=== PATIENT | female | born 1970 | race Two or more races ===

== ENCOUNTER → 2016-08-08 | Outpatient (CLI) | payer OTHER ==
[~2016-08-08] MED LIST: MELO-273 PO
[2016-08-11 13:59] LABS: H. PYLORI ANTIBODY IGM <9.0 units (0.0-8.9)
== END | disposition home or self-care (01) ==
LOC: LABPV 09:37
PROVIDERS: ATTEND Family Medicine
DX: A04.8 Other specified bacterial intestinal infections (principal)
CPT/HCPCS: 86677

== ENCOUNTER → 2016-11-25 | Outpatient (CLI) | payer OTHER | END | disposition home or self-care (01) | LOC: RADPV 12:00 | PROVIDERS: ATTEND Family Medicine | DX: G89.29 Other chronic pain (principal); M25.562 Pain in left knee; M79.642 Pain in left hand ==

== ENCOUNTER → 2017-08-13 | Outpatient (CLI) | payer OTHER ==
[~2017-08-13] MED LIST changes: +MELO-107 PO; -MELO-273 PO
== END | disposition home or self-care (01) ==
LOC: RADPV 07:39
PROVIDERS: ATTEND Nurse Practitioner
DX: D25.9 Leiomyoma of uterus, unspecified (principal); N85.8 Other specified noninflammatory disorders of uterus
CPT/HCPCS: 76830; 76856

== ENCOUNTER → 2017-12-23 | Outpatient (CLI) | payer OTHER ==
[2017-12-23 11:47] LABS: BASOPHILS % (AUTO) 0.4 % (0.0-2.0); EOSINOPHILS % (AUTO) 4.5 % (1.0-6.0); HEMATOCRIT 37.6 % (36-46); HEMOGLOBIN 12.3 g/dL (12.0-16.0); LYMPHOCYTES # (AUTO) 1.4 K/uL (1.0-4.8); LYMPHOCYTES % (AUTO) 25.5 % (22.0-44.0); MEAN CORPUSCULAR HEMOGLOBIN 26.5 pg (26.0-34.0); MEAN CORPUSCULAR HGB CONC 32.6 G/dL (31.0-37.0); MEAN CORPUSCULAR VOLUME 81 fL (80-100); MONOCYTES # (AUTO) 0.7 K/uL (0.1-1.0); MONOCYTES % (AUTO) 12.3 % (2.0-9.0); NEUTROPHILS # (AUTO) 3.1 K/uL (1.8-7.7); NEUTROPHILS % (AUTO) 57.3 % (40.0-70.0); PLATELET COUNT (AUTO) 296 K/uL (150-450); RED BLOOD CELL COUNT(AUTO) 4.63 MIL/uL (4.00-5.20); RED CELL DISTRIBUTION WIDTH 14.9 % (11.5-14.5)
[2017-12-23 12:07] LABS: ALANINE AMINOTRANSFERASE 24 U/L (12-78); ALBUMIN 3.3 g/dL (3.4-5.0); ALKALINE PHOSPHATASE 61 U/L (46-116); ANION GAP 9 mmol/L (8-16); ASPARTATE AMINOTRANSFERASE 24 U/L (15-37); BILIRUBIN,TOTAL 0.4 mg/dL (0.1-1.0); C-REACTIVE PROTEIN QUANT 2.08 mg/dL (0.00-0.30); CARBON DIOXIDE 26 mmol/L (22-29); CHLORIDE 104 mmol/L (98-107); CHOL/HDL RATIO 4.6 (3.9-5.7); CHOLESTEROL 204 mg/dL (131-200); GLOMERULAR FILTR. RATE CALC > 60 mL/min (>60); GLUCOSE,RANDOM 93 mg/dL (70-110); HDL CHOLESTEROL 44 mg/dL (40-60); LDL CHOL (CALC.) 130 mg/dL (0-130); POTASSIUM 4.2 mmol/L (3.5-5.1); SODIUM SERUM 139 mmol/L (136-145); TOTAL PROTEIN, SERUM 7.4 g/dL (6.4-8.2); TRIGLYCERIDES 152 mg/dL (15-150); UREA NITROGEN, BLOOD 19 mg/dL (7-18)
[2017-12-23 12:58] LABS: ERYTHROCYTE SEDIMENTATION RATE 19 MM/HR (0-20)
== END | disposition home or self-care (01) ==
LOC: MSR 09:47
PROVIDERS: ATTEND Nurse Practitioner
DX: M77.31 Calcaneal spur, right foot (principal); M05.9 Rheumatoid arthritis with rheumatoid factor, unspecified; M54.2 Cervicalgia
CPT/HCPCS: 72040; 85651; 86038; 86140

== ENCOUNTER 2018-03-16 08:23 | Emergency (ER) | payer SELFPAY | END 2018-03-16 09:26 | disposition left against medical advice (07) | LOC: EMS 08:23 | DX: R51 Headache (principal); Z53.21 Procedure and treatment not carried out due to patient leaving prior to being seen by health care provider ==

== ENCOUNTER 2018-03-26 06:58 | Inpatient (IN) | payer OTHER ==
[~2018-03-26] VITALS: Ht 152.4 cm; Wt 70.5 kg
[~2018-03-26 06:58] MED LIST changes: -MELO-107 PO; +NORT25 PO
[2018-03-26] MEDS ORDERED: RINGERS SOLUTION,LACTATED 1,000 ML IV ONE ×4 (07:00→13:05)
[2018-03-26] MEDS ORDERED: DEXTROSE 5%-LACTATED RINGERS 1,000 ML IV SCH (07:00)
[2018-03-26] MEDS ORDERED: BUPIVACAINE LIPOSOME/PF 1.3%-13.3MG/ML SUSPENSION 20 ML VIAL INJ ONE (07:00)
[2018-03-26 07:45] LABS: BASOPHILS % (AUTO) 0.7 % (0.0-2.0); EOSINOPHILS % (AUTO) 4.9 % (1.0-6.0); HEMATOCRIT 31.7 % (36-46); HEMOGLOBIN 10.3 g/dL (12.0-16.0); LYMPHOCYTES % (AUTO) 26.7 % (22.0-44.0); MEAN CORPUSCULAR HEMOGLOBIN 23.7 pg (26.0-34.0); MEAN CORPUSCULAR HGB CONC 32.4 G/dL (31.0-37.0); MEAN CORPUSCULAR VOLUME 73 fL (80-100); MONOCYTES # (AUTO) 0.7 K/uL (0.1-1.0); MONOCYTES % (AUTO) 9.2 % (2.0-9.0); NEUTROPHILS # (AUTO) 4.3 K/uL (1.8-7.7); NEUTROPHILS % (AUTO) 58.5 % (40.0-70.0); PLATELET COUNT (AUTO) 346 K/uL (150-450); RED BLOOD CELL COUNT(AUTO) 4.34 MIL/uL (4.00-5.20)
[2018-03-26 07:57] LABS: ANION GAP 7 mmol/L (8-16); CALCIUM, TOTAL 8.2 mg/dL (8.8-10.5); CARBON DIOXIDE 29 mmol/L (22-29); CHLORIDE 101 mmol/L (98-107); CREATININE 0.73 mg/dL (0.60-1.30); GLOMERULAR FILTR. RATE CALC > 60 mL/min (>60); GLUCOSE,RANDOM 91 mg/dL (70-110); POTASSIUM 3.9 mmol/L (3.5-5.1); SODIUM SERUM 137 mmol/L (136-145); UREA NITROGEN, BLOOD 18 mg/dL (7-18)
[2018-03-26 08:09] LABS: ALANINE AMINOTRANSFERASE 18 U/L (12-78); ALBUMIN 3.1 g/dL (3.4-5.0); ALKALINE PHOSPHATASE 54 U/L (46-116); ASPARTATE AMINOTRANSFERASE 17 U/L (15-37); BILIRUBIN,TOTAL 0.2 mg/dL (0.1-1.0); HCG,QUANTITATIVE < 1 mIU/mL (0-6); TOTAL PROTEIN, SERUM 6.9 g/dL (6.4-8.2)
[2018-03-26] MEDS ORDERED: ACETAMINOPHEN 1000 MG/ISO-OSM 100 ML IV ONE (08:47)
[2018-03-26] MEDS ORDERED: PROPOFOL 1000 MG/ISO-OSM 100 ML IV ONE (08:47)
[2018-03-26] MEDS ORDERED: BUPIVACAINE HCL/PF 0.25% 30 ML VIAL ONE (08:55)
[2018-03-26] MEDS ORDERED: SODIUM CHLORIDE 0.9% 1,000 ML IV ONE (08:55)
[2018-03-26] MEDS ORDERED: GUM MASTIC/STORAX/MSAL/ALCOHOL LIQUID 0.67 ML VIAL TP ONE (08:55)
[2018-03-26] MEDS ORDERED: CefoTEtan DISOD 2 GM/DEXTROSE 50 ML IV ONE (09:34)
[2018-03-26] MEDS ORDERED: BUPIVACAINE LIPOSOME/PF 1.3%-13.3MG/ML SUSPENSION 10 ML VIAL INJ ONE (10:00)
[2018-03-26] MEDS ORDERED: WATER FOR IRRIGATION,STERILE 1000 ML SOLUTION BOTTLE IRRIG ONE (11:15)
[2018-03-26] MEDS ORDERED: SODIUM CL IRRIG SOLN BAG 3,000 ML IRRIG ONE (11:22)
[2018-03-26] MEDS ORDERED: MEPERIDINE-PF 25 MG/ML VIAL IVP PRN (12:30)
[2018-03-26] MEDS ORDERED: HYDROmorphone 2 MG/ML SYRINGE IVP PRN ×2 (12:30→14:15)
[2018-03-26] MEDS ORDERED: FentaNYL CITRATE-PF 100 MCG/2 ML VIAL IVP PRN (12:30)
[2018-03-26] MEDS ORDERED: METHYLENE BLUE 1% 10 ML VIAL ONE (12:37)
[2018-03-26] MEDS ORDERED: RINGERS SOLUTION,LACTATED 500 ML IV ONE ×2 (13:56→14:33)
[2018-03-26] MEDS ORDERED: ONDANSETRON HCL 4 MG/2 ML VIAL IVP PRN (14:00)
[2018-03-26] MEDS ORDERED: HYDROCODONE/ACETAMINOPHEN 10-325 MG TABLET PO PRN (14:15)
[2018-03-26] MEDS ORDERED: HYDROmorphone 2 MG/ML SYRINGE ONE (14:22)
[2018-03-26] MEDS: KETOROLAC TROMETHAMINE 30 MG/ML VIAL IVP SCH (16:15)
[2018-03-26 17:01] VITALS: BP 102/54
[2018-03-26 18:25] LABS: BASOPHILS % (AUTO) 0.1 % (0.0-2.0); EOSINOPHILS % (AUTO) 0 % (1.0-6.0); HEMATOCRIT 27.3 % (36-46); HEMOGLOBIN 8.8 g/dL (12.0-16.0); LYMPHOCYTES # (AUTO) 0.5 K/uL (1.0-4.8); LYMPHOCYTES % (AUTO) 3.2 % (22.0-44.0); MEAN CORPUSCULAR HEMOGLOBIN 23.8 pg (26.0-34.0); MEAN CORPUSCULAR HGB CONC 32.2 G/dL (31.0-37.0); MEAN CORPUSCULAR VOLUME 74 fL (80-100); MONOCYTES # (AUTO) 0.3 K/uL (0.1-1.0); MONOCYTES % (AUTO) 2.3 % (2.0-9.0); NEUTROPHILS # (AUTO) 13.1 K/uL (1.8-7.7); PLATELET COUNT (AUTO) 283 K/uL (150-450); RED CELL DISTRIBUTION WIDTH 15.9 % (11.5-14.5)
[2018-03-26 18:35] LABS: NEUTROPHILS % (AUTO) 94.4 % (40.0-70.0)
[2018-03-26] MEDS: DOCUSATE SODIUM 100 MG CAPSULE PO SCH (20:47)
[2018-03-26 20:48] VITALS: BP 102/57
[2018-03-26] MEDS: OXYGEN THERAPY IH SCH (20:48)
[2018-03-26] MEDS: ACETAMINOPHEN 650 MG/ISO-OSM 65 ML IV SCH (20:48)
[2018-03-27 00:32] VITALS: BP 100/50
[2018-03-27] MEDS: KETOROLAC TROMETHAMINE 30 MG/ML VIAL IVP SCH ×2 (00:37→09:04)
[2018-03-27 04:15] VITALS: BP 101/53
[2018-03-27] MEDS: ACETAMINOPHEN 650 MG/ISO-OSM 65 ML IV SCH (05:06)
[2018-03-27] MEDS ORDERED: MIDAZOLAM HCL 2 MG/2 ML VIAL IVP ONE (05:52)
[2018-03-27] MEDS ORDERED: ROCURONIUM BROMIDE 10 MG/ML 5 ML VIAL IVP ONE (05:52)
[2018-03-27] MEDS ORDERED: HYDROmorphone 2 MG/ML SYRINGE IVP ONE (05:52)
[2018-03-27] MEDS ORDERED: 0.9% SODIUM CHLORIDE 10 ML VIAL IVP ONE (05:52)
[2018-03-27] MEDS ORDERED: FentaNYL CITRATE-PF 100 MCG/2 ML VIAL IVP ONE (05:52)
[2018-03-27] MEDS ORDERED: EPHEDrine SULFATE 50 MG/ML VIAL IM ONE (05:52)
[2018-03-27] MEDS ORDERED: KETOROLAC TROMETHAMINE 60 MG/2 ML VIAL IM ONE (05:52)
[2018-03-27] MEDS ORDERED: DEXAMETHASONE SOD PHOS 4 MG/ML VIAL IVP ONE (05:52)
[2018-03-27] MEDS ORDERED: ONDANSETRON HCL 4 MG/2 ML VIAL IVP ONE (05:52)
[2018-03-27] MEDS ORDERED: LIDOCAINE/PF 2% 5 ML VIAL IM ONE (05:52)
[2018-03-27] MEDS ORDERED: PROPOFOL 1% 20 ML VIAL IVP ONE (05:52)
[2018-03-27] MEDS: OXYGEN THERAPY IH SCH (08:00)
[2018-03-27 08:02] VITALS: BP 110/64
[2018-03-27] MEDS: DOCUSATE SODIUM 100 MG CAPSULE PO SCH (09:04)
[2018-03-27] MEDS ORDERED: FERR-89 PO (10:18)
[2018-03-27] MEDS ORDERED: IBUP-2070 PO (10:19)
[2018-03-27] MEDS ORDERED: DSS100 PO (10:20)
[2018-03-27] MEDS ORDERED: PERCT PO (10:20)
[2018-03-27] MEDS ORDERED: NORTRIPTYLINE HCL 10 MG CAPSULE PO SCH (21:00)
== END 2018-03-27 14:10 | disposition home or self-care (01) | DRG 743 ==
LOC: 4E 06:58 → 6N 17:17
PROVIDERS: ADMIT Obstetrics & Gynecology; ATTEND Obstetrics & Gynecology
PROC: 0UT74ZZ Resection of Bilateral Fallopian Tubes, Percutaneous Endoscopic Approach (ICD-10-PCS; 2018-03-26)
PROC: 0TJB8ZZ Inspection of Bladder, Via Natural or Artificial Opening Endoscopic (ICD-10-PCS; 2018-03-26)
PROC: 0UT94ZZ Resection of Uterus, Percutaneous Endoscopic Approach (ICD-10-PCS; principal; 2018-03-26 09:00)
DX: D25.9 Leiomyoma of uterus, unspecified (principal); N92.0 Excessive and frequent menstruation with regular cycle; N94.6 Dysmenorrhea, unspecified
CPT/HCPCS: 88304; 88305; 88307; C9290; G0378; J0131; J1100; J1170; J1885; J2250; J2405; J2704; J3010; J3490; J7030; J7120; Q9968

== ENCOUNTER → 2020-05-17 | Outpatient (CLI) | payer OTHER ==
[~2020-05-17] MED LIST changes: +DSS100 PO; +FERR-89 PO; +IBUP-2070 PO; +PERCT PO
== END | disposition home or self-care (01) ==
LOC: RADPV 09:15
PROVIDERS: ATTEND Nurse Practitioner
DX: M47.812 Spondylosis without myelopathy or radiculopathy, cervical region (principal); M54.2 Cervicalgia
CPT/HCPCS: 72040